=== PATIENT | male | born 1985 | race Caucasian/White ===

== ENCOUNTER 2017-06-09 20:25 | Emergency (ER) | payer SELFPAY ==
[~2017-06-09] VITALS: Ht 175.3 cm; Wt 79.0 kg
[~2017-06-09 20:25] MED LIST: CARB15DR50 LEFT EAR; PENI500T PO
[2017-06-09 21:15] VITALS: Ht 175.3 cm; Wt 79.0 kg
[2017-06-10] MEDS ORDERED: IBUP-1542 PO (21:18)
[2017-06-10] MEDS ORDERED: SULF1TAB31 PO (21:18)
[2017-06-10] MEDS ORDERED: CEPH-443 PO (21:18)
== END 2017-06-09 23:28 | disposition left against medical advice (07) ==
LOC: FTE 20:25
DX: Z53.21 Procedure and treatment not carried out due to patient leaving prior to being seen by health care provider (principal)

== ENCOUNTER 2017-06-10 17:14 | Emergency (ER) | END 2017-06-10 20:00 | disposition home or self-care (01) ==

== ENCOUNTER 2018-01-07 17:52 | Emergency (ER) | END 2018-01-07 19:05 | disposition home or self-care (01) ==

== ENCOUNTER 2018-01-15 16:40 | Emergency (ER) | END 2018-01-15 19:16 | disposition home or self-care (01) ==